=== PATIENT | male | born 1985 | race Caucasian/White ===

== ENCOUNTER 2021-11-17 12:55 | Emergency (ER) | payer OTHER, SELFPAY ==
--- NOTE | ~2021-11-17 | CT_ITS ---
EXAMINATION: CT knee LT w con DATE: 11/17/2021 14:25 INDICATION: Left lower limb pain and swelling. Spider bite. TECHNIQUE: Computed tomography (CT) of the with 100 mL Omnipaque 300 was performed without intravenou s contrast. Automated exposure control and iterative reconstruction technique were employed. The dose -length product was 100.95 mGy-cm. COMPARISON: None FINDINGS: Bone alignment is normal. No fracture. The knee joint spaces are normal. No knee joint effu sunil. The musculature is normal. Popliteal artery is normal. There is subcutaneous fat stranding post eromedial to the distal femur. IMPRESSION: 1. Subcutaneous fat stranding posteromedial to the distal femur, consistent with inflammation. No abs cess. Reviewed, dictated and finalized at location B. IMPRESSION: 1. Subcutaneous fat stranding posteromedial to the distal femur, consistent wit h inflammation. No abscess.
[2021-11-17 12:57] VITALS: BP 144/78; PULSE 72; RESP 16; TEMP 36.5; O2SAT 100
--- NOTE | 2021-11-17 13:31 | ED.SKABFB ---
HPI - Skin/Abscess/Foreign Bdy General Chief complaint: Skin/Abscess/Foreign Body Stated complaint: Spider Bite Left Knee Time Seen by Provider: 11/17/21 13:01 Source: patient Mode of arrival: ambulatory Limitations: no limitations History of Present Illness HPI narrative: 36-year-old male presents today with concerns of possible brown recluse bite sustained to the left lower thigh. Patient states Monday morning he woke up and noticed a black small area with some redness around it with extreme amount of pain. Patient states since then the area has increased in size. Patient denies any fevers but does endorse body aches, chills. Related Data Allergies Allergy/AdvReac Type Severity Reaction Status Date / Time No Known Allergies Allergy Verified 11/17/21 13:00 Review of Systems Review of Systems: CONSTITUTIONAL: Endorses chills, body aches, and sweats. EYES: Denies visual changes, redness, or discharge. ENT: Denies rhinorrhea, congestion, sore throat, or otalgia. CARDIOVASCULAR: Denies chest pain, palpitations, or edema. RESPIRATORY: Denies cough or dyspnea. GASTROINTESTINAL: Denies abdominal pain, nausea, vomiting, or diarrhea. GENITOURINARY: Denies dysuria or hematuria. SKIN: Wound to left lower posterior thigh. Increased in size since Monday when originally noted. Denies rash or itching. MUSCULOSKELETAL: Denies back pain, joint pain, or myalgia. NEUROLOGIC: Denies headache, numbness, dizziness, or weakness. PSYCHIATRIC: Denies anxiety or depression. Exam Narrative: GENERAL: Well-appearing, well-nourished, and in no acute distress. HEAD: Normocephalic, atraumatic. EYES: PERRLA and EOMI. ENT: Nares clear, no rhinorrhea or epistaxis. Mucous membranes moist. Oropharynx without tonsillar hypertrophy exudate or other lesions. Bilateral TMs pearly nino nonbulging NECK: Supple. No adenopathy or masses. No carotid bruits or JVD CHEST: Clear to auscultation. No respiratory distress. No wheezes rales or rhonchi HEART: Regular rate and rhythm. No murmur heard. Normal peripheral pulses. ABDOMEN: Soft, nontender, nondistended, normal active bowel sounds. EXTREMITIES: Left posterior thigh wound. Black necrotic area noted 1 cm x 1.3 cm with erythema and warmth extending 7 cm x 8 cm. Extreme tenderness with palpation. SKIN: Warm, dry, no rash. NEURO: No focal deficits. Alert and oriented x3. PSYCH: Normal mood and affect. Course Course Emergency Course: Reviewed labs and CT with patient. Patient aware he will be discharged home with p.o. antibiotics. Aware of the importance of follow-up. Aware to return with any new or worsening symptoms. Prior to discharge patient had follow-up scheduled for Monday with his primary already. Vital Signs Vital signs: Vital Signs Temperature 36.5 C 11/17/21 12:57 Pulse Rate 72 11/17/21 12:57 Respiratory Rate 16 11/17/21 12:57 Blood Pressure 144/78 H 11/17/21 12:57 Pulse Oximetry 100 11/17/21 12:57 Oxygen Delivery Room Air 11/17/21 12:57 Temperature 36.5 C 11/17/21 12:57 Pulse Rate 78 11/17/21 15:03 Respiratory Rate 18 11/17/21 15:03 Blood Pressure 144/78 H 11/17/21 12:57 Pulse Oximetry 98 11/17/21 15:03 Oxygen Delivery Room Air 11/17/21 12:57 MDM - Skin/Abscess/Foreign Bdy MDM Narrative Medical decision making narrative: 36-year-old male presents today with complaints of possible brown recluse bite to left lower thigh. HPI as noted. Patient with complaints of pain. Patient unable to sit still during examination due to pain. Suspect cellulitis, possible brown recluse bite. Due to severe pain portion to exam findings CT ordered to rule out necrotizing fasciitis. CT showed subcu fat stranding consistent with inflammation no abscess noted. Patient to be discharged on clindamycin with close follow-up with primary appointment already scheduled for Monday. He is aware to return with any concerning findings or worsening of condition. Differential
[2021-11-17 13:40] LABS: Basophils Percent Auto 0.5 % (0.2-1.2); Eosinophils Absolute Auto 0.1 K/mm3 (0-0.3); Eosinophils Percent Auto 0.8 % (0-4.4); Hematocrit 50.6 % (42.0-52.0); Hemoglobin 17.8 g/dL (14.0-18.0); Immature Granulocyte Absolute 0.02 K/mm3 (0.00-0.031); Immature Granulocyte Percent A 0.3 % (0-0.5); Lymphocytes Absolute Auto 1.86 K/mm3 (0.9-3.2); Lymphocytes Percent Auto 25.3 % (18.3-44.2); Mean Corpuscular HGB Conc 35.2 g/dl (32-36); Mean Corpuscular Volume 93.7 fl (80-100); Mean Platelet Volume 9.8 fl (7.4-10.4); Monocytes Percent Auto 13.6 % (2.6-8.5); Neutrophils Absolute Auto 4.4 K/mm3 (1.3-6.7); Neutrophils Percent Auto 59.5 % (45.5-73.1); Platelet Count Result 267 k/mm3 (150-375); Red Cell Distribution Width 12.7 % (11.5-14.5); White Blood Count 7.3 K/mm3 (4.5-10.0)
[2021-11-17 13:55] LABS: Lactic Acid Reflex 2.6 mmol/L (0.7-2.0)
--- NOTE | 2021-11-17 13:55 | PC.NURSE ---
Pt states he gets lightheaded and dizzy during blood draws. Offered patient to lay on bed during IV insertion, pt states he wants to stay in the chair, Wagner Jung RN called to bedside to assist. Pt became diaphoretic during IV insertion. Cold washcloth placed on back of neck and water given.
[2021-11-17 13:58] LABS: Alanine Aminotransferase 81 U/L (6-50); Alkaline Phosphatase 57 U/L (38-126); Anion Gap 8 mmol/L (8-16); Aspartate Amino Transferase 58 U/L (17-59); Bilirubin,Total 0.8 mg/dL (0.2-1.3); Blood Urea Nitrogen 7 mg/dL (9-20); Calcium 9.1 mg/dL (8.4-10.2); Carbon Dioxide 26 mmol/L (22-30); Chloride 106 mmol/L (98-107); Estimated CRCL calculation 91 ml/min; Estimated Glomerular Filt Rate > 60; Glucose 115 mg/dL (65-110); Potassium 4.2 mmol/L (3.4-5.0); Sodium 140 mmol/L (137-145)
--- NOTE | 2021-11-17 14:08 | PC.NURSE ---
Pt to CT via w/c
[2021-11-17] MEDS: CLINDAMYCIN HCL 150 MG CAP 300 MG PO (14:59)
[2021-11-17 15:03] VITALS: PULSE 78; RESP 18; O2SAT 98
[2021-11-17 16:37] LABS: Reflex Lactic Acid Yes or No Add Lactic
== END 2021-11-17 15:03 | disposition home or self-care (01) ==
PROVIDERS: Emergency Provider Nurse Practitioner Family; PCP Internal Medicine
DX: L03.116 Cellulitis of left lower limb (principal)
CPT/HCPCS: 36415; 73701; 80053; 83605; 85025; 99284; A9270; Q9967